=== PATIENT | female | born 1970 | race Caucasian/White ===

== ENCOUNTER → 2024-01-17 06:22 | Day surgery (SDC) | payer BC, SELFPAY | LOC: GI 06:22 | PROVIDERS: ATTENDING PHYSICIAN Specialist | DX: Z12.11 Encounter for screening for malignant neoplasm of colon (principal); K57.30 Diverticulosis of large intestine without perforation or abscess without bleeding; R09.A2 Foreign body sensation, throat; R12 Heartburn; K31.7 Polyp of stomach and duodenum; R13.10 Dysphagia, unspecified; F45.8 Other somatoform disorders; Z86.010 Personal history of colon polyps | CPT/HCPCS: 43239; G0105; 88305 ==

== ENCOUNTER → 2024-05-19 15:28 | Outpatient (REF) | payer BC, SELFPAY | LOC: HWWDC 15:28 | PROVIDERS: ATTENDING PHYSICIAN Obstetrics & Gynecology; FAMILY PHYSICIAN Nurse Practitioner Gerontology | DX: Z12.31 Encounter for screening mammogram for malignant neoplasm of breast (principal) | CPT/HCPCS: 77063; 77067 ==

== ENCOUNTER 2024-07-06 07:54 | Emergency (ER) | payer BC, SELFPAY ==
[2024-07-06] VITALS (17 sets, daily range): BP systolic 93–135; BP diastolic 66–90
--- NOTE | 2024-07-06 08:10 | EDRN ---
Pt says ' now I can't walk at all' because of her illness
--- NOTE | 2024-07-06 08:22 | ED.GENMED ---
History of Present Illness
General
Chief Complaint: Fainting/Passed Out
Source: patient
Exam Limitations: none
Time Seen by Provider: 07/06/24 08:08
History of Present Illness
History of Present Illness:
53-year-old female became lightheaded and near syncope in the shower. She is going up on her blood pressure medication recently and a diuretic was added 2 days ago. She stepped out of the shower and then passed out. She does not think she had
significant head trauma but is not totally sure. She denies chest pain shortness of breath. She does have ongoing nausea and dizziness. No headache no other neurologic symptoms. No history of same. Blood pressure medications have been going up
recently. And diuretics were added 2 days ago.
Past History
Past History
ED Past Medical History: HTN, Hypercholesterolemia and Psychiatric (anxiety)
ED Past Surgical History: (X 1) and Other (hernia repair)
Social History
Tobacco: Non-smoker
Alcohol: Occasional
Drug: None
Personal:
Living: alone
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
Family History
Family History: CAD (An advanced age); Negative Diabetes, Hypertension, Early CAD or Cancer
Review of Systems
Review of Systems
All Other Systems: Not applicable
Respiratory: Denies trouble breathing
Cardiac: Denies chest pain
Phy Exam
Physical Exam
Physical Exam:
GENERAL: Alert and oriented in no apparent distress. No signs of scalp trauma
EYE: Orbits normal.
NECK: Supple, no significant adenopathy.
ENT: Pharynx without erythema
CARDIAC: Regular rate and rhythm without any obvious murmurs.
LUNGS: Clear breath sounds,normal
ABDOMEN: Soft, without focal tenderness or distention
NEUROLOGICAL: Alert and oriented , grossly non-focal
SKIN: Warm and dry, no rash or lesion, no discoloration, skin intact.
MUSCULOSKELETAL: No edema,no deformity.Good color
PSYCH: Normal and appropriate interaction.
Course
Orders/Labs/Results
Orders:
Orders
07/06/24 08:04
Electrocardiogram (*1) Urgent
Reason for Study: Syncope
Cardiac Monitoring- Treatment ONCE
EKG- Treatment ONCE
07/06/24 08:07
CMP [Comprehensive Metabolic Panel] Urgent
Complete Blood Count/With Diff Urgent
07/06/24 08:21
CT Head W/o Iv Contrast Urgent
Comment:
Reason For Exam: Nausea vertigo possible head trauma
0.9% Sodium Chloride 1000 ml [Nss] 1,000 ml IV BOLUS
Ondansetron Injectable [Zofran] 4 mg IV NOW STA
07/06/24 08:35
COVID-19 Antigen Urgent
Source: Nasal Swab
D-Dimer Urgent
Troponin I Urgent
Influenza A+B Rapid Molecular Urgent
EDUARDO Source: Nasal Swab
Specimen Description:
07/06/24 13:19
Electrocardiogram (*1) Urgent
Reason for Study: Other
Other Reason for Exam: weakness
EKG- Treatment ONCE
07/06/24 13:28
Troponin I Urgent
Abnormal Lab Results
07/06/24
08:07
Abs Immat Gran (auto) 0.2 H 10^3/uL
(0-0.05)
Absolute Neuts (auto) 7.3 H 10^3/uL
(1.4-6.5)
Absolute Monos (auto) 0.9 H 10^3/uL
(0.1-0.6)
Immature Gran % 1.9 H %
(0-0.5)
Lymphocytes % 20.2 L %
(20.5-51.1)
Glucose 175 H mg/dl
(70-99)
07/06/24 08:07
07/06/24 08:07
Vital Signs
Initial and Last Documented VS:
Initial Vital Signs
Temp Pulse Resp Pulse Ox
97.2 F 88 18 100
07/06/24 08:02 07/06/24 08:02 07/06/24 08:02 07/06/24 08:02
Last Documented Vital Signs
Temp Pulse Resp BP Pulse Ox
97.2 F 73 16 118/77 95
07/06/24 08:02 07/06/24 14:30 07/06/24 08:30 07/06/24 14:32 07/06/24 12:15
MDM/Problems Addressed
Differential Diagnosis Includes:
Patient describing vasovagal syncope. Second episode was likely not a completion of the first. Doubt significant trauma. However with ongoing nausea and dizziness we will get a head CT. Labs pending electrolytes pending IV fluids. D-dimer and
troponin because of ongoing symptoms.
*Pulse Oximetry
Patient hypoxic: no
*EKG
Interpreted by ED Provider?: Yes
Interpretation: normal
Comparison EKG: no changes
Heart Rate: 75
Rate: normal
Rhythm: sinus
[place]: normal axis
Interval: normal interval
QRS Pattern: normal QRS
Ischemia: no ischemia
*Operations Lieutenant Interpretation
Rate: normal
Interpretation: normal
Heart Rate: 82
Rhythm: sinus
*Critical Care Note
Total Time (30-74mins, 75-104mins- exclusive of procedures): Not Applicable
Data Reviewed
Review of Other/Old Records Reveals: Labs, Records and Testing
Update Note
Update Note:
Seen and cleared by cardiology for discharge and follow-up
ED Attending Note
-
Portions of this chart may have been created with voice recognition software.� Occasional wrong word or��sound alike� substitutions may have occurred due to the inherent limitations of voice recognition software.
Discharge Plan
Departure
Patient Disposition: Home (Routine Discharge)
Date of Disposition: 07/06/24
Time of Disposition: 15:42
Patient with high blood pressure during this ER visit?: No
Discharge Problem:
Syncope, Dehydration
Instructions: Syncope (Fainting) (DC)
Prescriptions:
No Action
sertraline 100 MG tablet
100 mg PO DAILY
cetirizine 10 MG tablet
10 mg PO DAILY
aspirin [Aspir-Low] 81 MG tablet,delayed release (DR/EC)
81 mg PO .QOD
ferrous sulfate [iron] 325 MG tablet
325 mg PO DAILY
lisinopril 10 MG tablet
10 mg PO DAILY
cholecalciferol (vitamin D3) [Vitamin D3] 1,000 UNIT capsule
1,000 unit PO DAILY
docosahexaenoic acid-epa 1 CAP capsule
1 cap PO DAILY
rosuvastatin [Crestor] 5 MG tablet
5 mg PO .QOD
Referrals:
Jackie Das NP [Family Provider] - Follow up in 2-3 days
Activity Restrictions/Additional Instructions:
Hold on your diuretic for now
Call your supervisor securities vault for close follow-up
To consider outpatient stress test for completeness
Return immediately with worsening symptoms including recurrent syncope, chest pain shortness of breath or any other concerning symptoms
Interventions
Interventions:
*Risk Screen - Suicide Last Done: 07/06/24 13:10
*Neglect/Abuse Screening Last Done: 07/06/24 13:10
ED- Fall Risk Assessment Last Done: 07/06/24 08:10
*ED COVID-19 Vaccine History Last Done: 07/06/24 08:05
ED- Cardiac Assessment Last Done: 07/06/24 08:11
ED- Neurological Assessment Last Done: 07/06/24 08:12
Discharge Date and Time
Print Language: THAI
[2024-07-06 08:24] LABS: % Basophils 0.5 % (0-2); % Eosinophils 0.6 % (0-6); % Immature Granulocytes 1.9 % (0-0.5); % Lymphocytes 20.2 % (20.5-51.1); % Monocytes 8.4 % (1.7-9.3); % Neutrophils 68.4 % (42.2-75.2); Absolute Basophils 0.1 10^3/uL (0-0.2); Absolute Eosinophils 0.1 10^3/uL (0-0.7); Absolute Immature Granulocytes 0.2 10^3/uL (0-0.05); Absolute Lymphocytes 2.1 10^3/uL (1.2-3.4); Absolute Monocytes 0.9 10^3/uL (0.1-0.6); Absolute Neutrophils 7.3 10^3/uL (1.4-6.5); Hemoglobin 13.7 g/dL (12.0-16.0); Mean Corp Hgb Conc. 34.3 g/dL (33.0-37.0); Mean Corpuscular Hgb 30.4 pg (27.0-31.0); Mean Corpuscular Volume 88.9 fL (81.0-99.0); Mean Platelet Volume 10.1 fL (7.4-10.4); Nucleated Red Blood Cells % 0 %; Platelet Count 243 10^3/uL (130-400); Red Cell Dist. Width 13.2 % (11.5-14.5); White Blood Cell Count 10.6 10^3/uL (4.8-10.8)
[2024-07-06] MEDS: ZOFRAN 4 MG IV (08:32)
[2024-07-06] MEDS: NSS 1000 IV (08:32)
[2024-07-06 08:35] LABS: ALT (SGPT) 25 U/L (0-35); AST (SGOT) 35 U/L (14-36); Albumin 4.5 g/dl (3.5-5.0); Alkaline Phosphatase 86 U/L (38-126); Blood Urea Nitrogen 17 mg/dl (7-17); Calcium 9.3 mg/dl (8.4-10.2); Carbon Dioxide 28 mmol/L (22-30); Chloride 101 mmol/L (98-107); Glucose 175 mg/dl (70-99); Potassium 3.7 mmol/L (3.5-5.1); Sodium 139 mmol/L (135-145); Total Bilirubin 0.5 mg/dl (0.2-1.3); eGFR > 60.00
[2024-07-06 09:01] LABS: COVID-19 Antigen Negative (Negative)
[2024-07-06 09:11] LABS: Troponin I 0.013 ng/ml
[2024-07-06 09:24] LABS: D-Dimer < 0.27 ug/mlFEU (0.00-0.50)
[2024-07-06 14:10] LABS: Troponin I < 0.012 ng/ml
--- NOTE | 2024-07-06 14:33 | CON.CAR ---
Consultation
Consultation Request
Date/Time Consultation Requested: 07/06/2024 14:00
Date/Time Consultation Performed: 07/06/2024 14:20
Requesting Provider: Dr. Hand
Performing Provider: MELIDA Lowery for Dr. Ragsdale
Reason for Consultation: Syncope
Medical History
-
Chief Complaint: Syncope
History of Present Illness:
Paige Sharpe is a 53-year-old female (known to whiteprinting machine operator, Dr. Campos and Dr. Castro), with elevated coronary artery calcium score, hypertension, dyslipidemia, and anxiety who presented to the emergency department with a chief complaint of
syncope. She reports she has been under significant amount of stress. 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 She does not do this
frequently. This morning she felt like she was going to have a panic attack. She took clonazepam in addition to losartan�HCTZ. She took a shower and suddenly felt dizzy. She sat down and had a syncopal episode. She vomited. Her boyfriend said it
was for about 20 seconds. She then went back into the shower as she was covered in soap and had a second syncopal episode. She reports she has been voiding very frequently. At her most recent office visit with her whiteprinting machine operator her losartan 100 mg
was continued and HCTZ 25 mg was added. She has no chest pain. She is not dizzy. She is no longer nauseous.
Past Medical History
Past Medical History: HTN, Hypercholesterolemia, Psychiatric (Anxiety) and Other (Elevated coronary artery calcium score)
Past Surgical History:
Social History
Tobacco: Non-Smoker
Personal: Single
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
Family History
Family History: Reviewed & Not Pertinent and CAD (Advanced age)
Allergies / Home Medications
Allergy/AdvReac Type Severity Reaction Status Date / Time
clindamycin Allergy Vomiting Verified 07/06/24 08:13
doxycycline Allergy Swelling Verified 07/06/24 08:13
loratadine [From Claritin] Allergy Hives Verified 07/06/24 08:13
Tetracyclines Allergy Swelling Verified 07/06/24 08:13
�Medication �Instructions �Recorded �Confirmed �Type
sertraline 100 mg tablet 100 mg PO DAILY 05/24/16 03/23/20 History
aspirin 81 mg tablet,delayed 81 mg PO .QOD 03/23/20 03/23/20 History
release (Aspir-Low)
cetirizine 10 mg tablet 10 mg PO DAILY 03/23/20 03/23/20 History
cholecalciferol (vitamin D3) 25 1,000 unit PO DAILY 03/23/20 03/23/20 History
mcg (1,000 unit) capsule (Vitamin
D3)
docosahexaenoic acid (dha)-epa 120 1 cap PO DAILY 03/23/20 03/23/20 History
mg-180 mg capsule
ferrous sulfate 325 mg (65 mg 325 mg PO DAILY 03/23/20 03/23/20 History
iron) tablet (iron)
lisinopril 10 mg tablet 10 mg PO DAILY 03/23/20 03/23/20 History
rosuvastatin 5 mg tablet (Crestor) 5 mg PO .QOD 03/23/20 03/23/20 History
Review of Systems
-
History Source: Patient
All other systems: Negative unless noted
Constitutional: Fatigue
EENT: No Symptoms
Respiratory: No Symptoms
Cardiac: No Symptoms
Abdomen/GI: No Symptoms
: No Symptoms
Musculoskeletal: No Symptoms
Skin: No Symptoms
Neurological: No Symptoms
Endocrine: No Symptoms
Hematologic/Lymphatic: No Symptoms
Physical Exam
Vital Signs
Temp Pulse Resp BP Pulse Ox
97.2 F 73 16 118/77 95
07/06/24 08:02 07/06/24 14:30 07/06/24 08:30 07/06/24 14:32 07/06/24 12:15
Lab Results
07/06/24 08:07
07/06/24 08:07
Troponin I < 0.012 ng/ml 07/06/24 13:28
Physical Exam
General: Well Developed, Well Nourished, No Apparent Distress and Comfortable
HEENT: Normocephalic, Anicteric and Moist Mucous Membranes
Respiratory: Clear and Non Labored Respirations
Cardiac: S1/S2 and Regular Rhythm; Negative Peripheral Edema
Breast: Deferred by me
GI: Soft, Non Tender, Non Distended and Normal Bowel Sounds
Rectal: Deferred by Provider
Genito-urinary: No Costovertebral Tender
Musculoskeletal: No Clubbing, No Cyanosis and No Edema
Skin: Warm and Dry
Neuro: AO x 3
Hematologic/Lymphatic: No Lymphadenopathy
Psych: Calm
Impression / Plan
-
Syncope, vasovagal
-Denies CP, feels better, nausea resolved
-Stop HCTZ
-EKG stable, troponin stable x 2
Hypertension
-BP stable in the ER
-Stop HCTZ 25 mg
-Report BP log to her primary whiteprinting machine operator
Elevated coronary artery calcium score, on aspirin and statin, continue
Dyslipidemia, continue current medical therapy
[2024-07-06] MEDS: TYLENOL 650 MG PO (15:45)
== END 2024-07-06 16:02 | disposition home or self-care (01) ==
LOC: EMR 07:54
PROVIDERS: EMERGENCY PHYSICIAN Emergency Medicine; FAMILY PHYSICIAN Nurse Practitioner Gerontology
DX: E86.0 Dehydration (principal); R55 Syncope and collapse; I10 Essential (primary) hypertension; F41.9 Anxiety disorder, unspecified; E78.00 Pure hypercholesterolemia, unspecified
CPT/HCPCS: 99285; 96374; 96361 ×3; 70450; 80053; 84484; 85025; 85379; 87502; 87811; 93005

== ENCOUNTER → 2024-07-24 09:01 | Outpatient (REF) | payer BC, SELFPAY ==
[2024-07-24 12:41] LABS: % Basophils 0.4 % (0-2); % Eosinophils 0.5 % (0-6); % Immature Granulocytes 0.3 % (0-0.5); % Lymphocytes 29.3 % (20.5-51.1); % Neutrophils 61.5 % (42.2-75.2); Absolute Lymphocytes 2.2 10^3/uL (1.2-3.4); Absolute Monocytes 0.6 10^3/uL (0.1-0.6); Absolute Neutrophils 4.5 10^3/uL (1.4-6.5); Hemoglobin 12.2 g/dL (12.0-16.0); Mean Corpuscular Hgb 30.3 pg (27.0-31.0); Mean Corpuscular Volume 91.8 fL (81.0-99.0); Mean Platelet Volume 9.9 fL (7.4-10.4); Nucleated Red Blood Cells % 0 %; Platelet Count 262 10^3/uL (130-400); Red Blood Cell Count 4.03 10^6/uL (4.20-5.40); Red Cell Dist. Width 13.1 % (11.5-14.5); White Blood Cell Count 7.3 10^3/uL (4.8-10.8)
[2024-07-24 13:19] LABS: ALT (SGPT) 24 U/L (0-35); AST (SGOT) 33 U/L (14-36); Albumin 4.5 g/dl (3.5-5.0); Alkaline Phosphatase 75 U/L (38-126); Blood Urea Nitrogen 16 mg/dl (7-17); Calcium 8.9 mg/dl (8.4-10.2); Carbon Dioxide 34 mmol/L (22-30); Chloride 97 mmol/L (98-107); Glucose 90 mg/dl (70-99); HDL Cholesterol 62 mg/dl; LDL Cholesterol, Calculated 71 mg/dl; Potassium 3.9 mmol/L (3.5-5.1); Sodium 138 mmol/L (135-145); Total Bilirubin 0.8 mg/dl (0.2-1.3); Total Cholesterol 149 mg/dl (50-199); Triglyceride 80 mg/dl (10-149); Very Low Density Lipoprotein 16 mg/dl (0-30); eGFR > 60.00
[2024-07-24 13:46] LABS: TSH Reflex To Free T4 0.87 uIU/ml (0.47-4.68)
[2024-07-24 14:47] LABS: Glycohemoglobin (HgbA1c) 6.1 % (4.0-5.6)
== END ==
LOC: HWLAB 09:01
PROVIDERS: ATTENDING PHYSICIAN Nurse Practitioner Gerontology
DX: R55 Syncope and collapse (principal); R73.03 Prediabetes; E78.2 Mixed hyperlipidemia
CPT/HCPCS: 36415; 80053; 80061; 83036; 84443; 85025